=== PATIENT | female | born 1990 | race American Indian/Alaskan Native ===

== ENCOUNTER 2016-08-17 05:46 | Emergency (ER) | payer OTHER ==
[2016-08-17 06:39] LABS: Basophils % (Auto) 0.5 % (0.0-1.8); Eosinophils % (Auto) 0.8 % (0.0-4.3); Hematocrit 40.6 % (30.3-42.9); Hemoglobin 13.6 gm/dl (10.1-14.3); Mean Corpuscular HGB Conc 34 % (30-34); Mean Corpuscular Hemoglobin 32 pg (28-32); Mean Corpuscular Volume 95 fl (79-97); Platelet Count 169 K/mm3 (140-440); Red Blood Count 4.29 M/mm3 (3.65-5.03); Red Cell Distribution Width 13.3 % (13.2-15.2); White Blood Count 6.7 K/mm3 (4.5-11.0)
[2016-08-17 07:02] LABS: Alanine Aminotransferase 9 units/L (7-56); Albumin 3.8 g/dL (3.9-5); Albumin/Globulin Ratio 1.1 %; Alkaline Phosphatase 60 units/L (35-129); Anion Gap 16 mmol/L; Blood Urea Nitrogen 14 mg/dL (7-17); Calcium 8.4 mg/dL (8.4-10.2); Carbon Dioxide 23 mmol/L (22-30); Chloride 105.1 mmol/L (98-107); Glucose 92 mg/dL (65-100); Lipase 81 units/L (13-60); Potassium 3.7 mmol/L (3.6-5.0); Sodium 140 mmol/L (137-145); Total Protein 7.2 g/dL (6.3-8.2)
[2016-08-17 07:05] LABS: Bilirubin,Urine NEG (Negative); Blood,Urine NEG (Negative); Ketones,Urine NEG (Negative); Leukocyte Esterase,Urine SM (Negative); Mucus,Urine 1+ /HPF; Nitrite,Urine NEG (Negative); Protein,Urine <15 mg/dL mg/dL (Negative)
[2016-08-17 10:03] VITALS: BP 130/78
--- NOTE | 2016-08-17 10:23 | Emergency Department Report ---
ED General Adult HPI - General Chief complaint: Abdominal Pain Stated complaint: ABD PAIN Time Seen by Provider: 08/17/16 10:06 Source: patient, RN notes reviewed Mode of arrival: Ambulatory Limitations: No Limitations - History of Present Illness Initial comments: This is a 26-year-old female. She is previously unknown to me. She does not have a primary care doctor. She denies chronic medical conditions. She does not take oral contraceptives for control. she reports surgical history for right-sided salpingectomy a few years ago, secondary to ectopic . The patient presents to the ER complaining of not feeling well, an episode of near-syncope yesterday. The patient reports that she was out in the extreme heat, did not eat enough or drink enough. She denies sudden or thunderclap headache, neck pain, neck stiffness, recent chiropractic manipulation. There is no chest pain, there is no shortness of breath, there is no leg pain, there is no leg swelling, no recent trips greater than 4 hours, no recent hospital admissions. The patient states that she has no change in her exercise tolerance, and she denies irritative and obstructive urinary symptoms. She reports a few episodes of diarrhea, which she describes as nonbloody, loose, watery, brown. The patient does not think that she had a complete loss of consciousness, only that she felt "dizzy and weak", and needed to sit down. The patient also complains of intermittent left lower quadrant pain which is described as crampy in nature. She associates with her menstruation. -: Gradual Location: abdomen Quality: aching Consistency: intermittent Improves with: none Worsens with: none Associated Symptoms: malaise, nausea/vomiting, syncope (near), weakness. denies : confusion, chest pain, cough, diaphoresis, fever/chills, headaches, loss of appetite - Related Data Previous Rx's Medication Instructions Recorded Last Taken Type Ibuprofen [Motrin] 600 mg PO Q8H PRN #30 tablet 08/17/16 Unknown Rx Ondansetron [Zofran Odt] 4 mg PO QID PRN #20 tab.rapdis 08/17/16 Unknown Rx Allergies Allergy/AdvReac Type Severity Reaction Status Date / Time No Known Allergies Allergy Unverified 08/17/16 05:55 ED Review of Systems ROS: Stated complaint: ABD PAIN Other details as noted in HPI Constitutional: denies: fever Eyes: denies: eye discharge ENT: denies: epistaxis Respiratory: denies: cough Cardiovascular: denies: chest pain Gastrointestinal: abdominal pain Genitourinary: denies: urgency, dysuria Musculoskeletal: denies: back pain Skin: denies: lesions Neurological: weakness Psychiatric: denies: depression ED Past Medical Hx - Past Medical History Previous Medical History?: Yes Additional medical history: Ectopic in 2010 and lost her right Fallopian tube - Surgical History Past Surgical History?: Yes Additional Surgical History: Ectopic right Fallopian tube removal - Social History Smoking Status: Unknown if ever smoked - Medications Home Medications: Home Medications Medication Instructions Recorded Confirmed Last Taken Type Ibuprofen [Motrin] 600 mg PO Q8H PRN #30 tablet 08/17/16 Unknown Rx Ondansetron [Zofran Odt] 4 mg PO QID PRN #20 tab.rapdis 08/17/16 Unknown Rx ED Physical Exam - General Limitations: No Limitations General appearance: alert, in no apparent distress - Head Head exam: Present: atraumatic, normocephalic - Eye Eye exam: Present: normal appearance, PERRL, EOMI, other (visual acuity intact to finger counting, color perception, reading at a close distance) - ENT ENT exam: Present: normal exam, normal orophraynx, mucous membranes moist, normal external ear exam, other (there is no mastoid tenderness. The bilateral ear helices are nontender. There is cerumen noted in the bilateral external auditory canals) - Neck Neck exam: Present: normal inspection, full ROM. Absent: tenderness, meningismus - Respiratory Respiratory exam: Present: normal lung sounds bilaterally. Absent: respiratory distress, wheezes, rales, rhonchi, stridor, chest wall tenderness, accessory muscle use, decreased breath sounds, prolonged expiratory - Cardiovascular Cardiovascular Exam: Present: regular rate, normal rhythm, normal heart sounds. Absent: bradycardia, tachycardia, irregular rhythm, systolic murmur, diastolic murmur, rubs, gallop - GI/Abdominal GI/Abdominal exam: Present: soft, normal bowel sounds. Absent: distended, tenderness, guarding, rebound, rigid, pulsatile mass - External exam: Present: normal external exam Speculum exam: Present: normal speculum exam, vaginal bleeding Bi-manual exam: Present: normal bi-manual exam, other (escorted by BHAKTI Rice). Absent: cervical motion tendernes, adnexal tenderness, adnexal mass - Extremities Exam Extremities exam: Present: normal inspection, full ROM, normal capillary refill. Absent: tenderness, pedal edema, joint swelling, calf tenderness - Back Exam Back exam: Present: normal inspection, full ROM. Absent: tenderness, CVA tenderness (R), CVA tenderness (L), muscle spasm, paraspinal tenderness, vertebral tenderness - Neurological Exam Neurological exam: Present: alert, oriented X3, normal gait (normal gait, normal tandem gait, negative pronator drift, negative Romberg examination, normal sllr-er-[id number].), other (Extraocular movements intact. Tongue midline. No facial droop. Facial sensation intact to light touch in the V1, V2, V3 distribution bilaterally. 5 and 5 strength in 4 extremities.. Sensation is intact to light touch in 4 extremities.). Absent: motor sensory deficit - Psychiatric Psychiatric exam: Present: normal affect, normal mood - Skin Skin exam: Present: warm, dry, intact, normal color. Absent: rash ED Course Vital Signs 08/17/16 08/17/16 05:57 10:02 Temperature 98.7 F Pulse Rate 87 77 Respiratory 14 16 Rate Blood Pressure 115/72 Blood Pressure 130/78 [Left] O2 Sat by Pulse 98 99 Oximetry - Reevaluation(s) Reevaluation #1: 08/17/16 10:23 differential diagnosis: Orthostasis, vagal event, heat exhaustion , electrolyte derangement, urinary tract infection, , arrhythmia, structural cardiac disease Assessment and plan: 26-year-old female with intermittent left lower quadrant pain, an episode of near-syncope. She is afebrile with reassuring vital signs, has a GCS of 15, NIH score of 0, walks with a steady gait, clinically sober. He has no pulmonary embolus or DVT risk factors, she is low risk by well's criteria, and is perc negative. The abdomen is soft and benign, with no rebound, guarding or peritoneal signs. She is tolerating liquid feeds at this time. Her main complaint is near syncope , and she does not relate this to the abdominal pain, they appear to be separate complaints. Laboratory studies are unremarkable, she sounds not be , a urinalysis is contaminated with epithelial cells, she endorses no irritative or obstructive urinary symptoms, however her urine culture will be sent. We will obtain an EKG, performed gynecologic examination. The patient is not actively vomiting at this time. Elevated lipase nonspecific, there is no epigastric tenderness, liver function tests are otherwise within normal limits, given her benign abdominal examination , benign neurologic examination, I do believe the patient requires advanced imaging at this time. There is no sudden or thunderclap headache, and there is no recent history of neck trauma or chiropractic manipulation. Therefore I dont feel like this patient requires advanced imaging of the head of the neck. Reevaluation #2: 08/17/16 11:07 gynecologic examination is benign. Patient is tolerating liquid feeds. There is no pulsatile abdominal mass. 2+ pulses noted in 4 extremities. Patient feels improved. Patient will be discharged at this time. ED Medical Decision Making - Lab Data Result diagrams: 08/17/16 06:18 08/17/16 06:18 Vital Signs 08/17/16 08/17/16 05:57 10:02 Temperature 98.7 F Pulse Rate 87 77 Respiratory 14 16 Rate Blood Pressure 115/72 Blood Pressure 130/78 [Left] O2 Sat by Pulse 98 99 Oximetry Lab Results 08/17/16 08/17/16 08/17/16 Range/Units 06:16 06:18 06:18 WBC 6.7 (4.5-11.0) K/mm3 RBC 4.29 (3.65-5.03) M/mm3 Hgb 13.6 (10.1-14.3) gm/dl Hct 40.6 (30.3-42.9) % MCV 95 (79-97) fl MCH 32 (28-32) pg MCHC 34 (30-34) % RDW 13.3 (13.2-15.2) % Plt Count 169 (140-440) K/mm3 Lymph % (Auto) 23.6 (13.4-35.0) % [place] % (Auto) 8.2 H (0.0-7.3) % Eos % (Auto) 0.8 (0.0-4.3) % Baso % (Auto) 0.5 (0.0-1.8) % Lymph # 1.6 (1.2-5.4) K/mm3 [place] # 0.5 (0.0-0.8) K/mm3 Eos # 0.1 (0.0-0.4) K/mm3 Baso # 0.0 (0.0-0.1) K/mm3 Seg Neutrophils % 66.9 (40.0-70.0) % Seg Neutrophils # 4.5 (1.8-7.7) K/mm3 Sodium 140 (137-145) mmol/L Potassium 3.7 (3.6-5.0) mmol/L Chloride 105.1 (98-107) mmol/L Carbon Dioxide 23 (22-30) mmol/L Anion Gap 16 mmol/L BUN 14 (7-17) mg/dL Creatinine 0.7 (0.7-1.2) mg/dL Estimated GFR > 60 ml/min BUN/Creatinine Ratio 20.00 % Glucose 92 (65-100) mg/dL Calcium 8.4 (8.4-10.2) mg/dL Total Bilirubin 0.40 (0.1-1.2) mg/dL AST 13 (5-40) units/L ALT 9 (7-56) units/L Alkaline Phosphatase 60 (35-129) units/L Total Protein 7.2 (6.3-8.2) g/dL Albumin 3.8 L (3.9-5) g/dL Albumin/Globulin Ratio 1.1 % Lipase 81 H (13-60) units/L Urine Color Yellow (Yellow) Urine Turbidity Clear (Clear) Urine pH 5.0 (5.0-7.0) Ur Specific [place] 1.024 (1.003-1.030) Urine Protein <15 mg/dl (Negative) mg/dL Urine Glucose (UA) Neg (Negative) mg/dL Urine Ketones Neg (Negative) mg/dL Urine Blood Neg (Negative) Urine Nitrite Neg (Negative) Urine Bilirubin Neg (Negative) Urine Urobilinogen 2.0 (<2.0) mg/dL Ur Leukocyte Esterase Sm (Negative) Urine WBC (Auto) 21.0 H (0.0-6.0) /HPF Urine RBC (Auto) 1.0 (0.0-6.0) /HPF U Epithel Cells (Auto) 14.0 H (0-13.0) /HPF Urine Mucus 1+ /HPF Urine HCG, Qual Negative (Negative) - EKG Data -: EKG Interpreted by Ca - EKG Data 08/17/16 10:43 Normal sinus, 62 bpm, normal axis, first-degree AV block, normal intervals otherwise, no epsilon wave noted, no Brugada pattern noted, are not morphologically consistent with STEMI. Critical care attestation.: If time is entered above; I have spent that time in minutes in the direct care of this critically ill patient, excluding procedure time. ED Disposition Clinical Impression: Near syncope, Abdominal pain, left lower quadrant Disposition: DISCHARGED TO HOME OR SELFCARE Is pt being admited?: No Does the pt Need Aspirin: No Condition: Stable Additional Instructions: Laboratory studies were essentially unremarkable. There was a slight nonspecific elevation in lipase, this is most likely incidental and not clinically significant. Cultures were sent today, results will be available in the next 3-5 days. Have a primary care doctor contact the medical records department to obtain culture results. Drink 6-8 cups of water per day, make certain to eat at least 3 meals per day. Follow up with any listed physicians or primary care doctors within the next 7-10 days. Return to the ER right away with new pain, worsened pain, migration of pain, fevers, chills, chest pain, shortness of breath, change in mental status, confusion, intractable nausea or vomiting, inability to tolerate liquid feeds, or any new different or worsening symptoms that were not present on the initial ER evaluation. Referrals: PRIMARY CAREMD [Primary Care Provider] - 3-5 Days CHRISTIANE WHITE MD [Staff Physician] - 3-5 Days [facility] [Provider Group] - 3-5 Days [facility] [Provider Group] - 3-5 Days [facility] [Provider Group] - 3-5 Days Forms: Work/School Release Form(ED)
[2016-08-17] MEDS ORDERED: MOTRIN PO ONE (10:26)
== END 2016-08-17 11:18 | disposition home or self-care (01) ==
LOC: ED 05:46
DX: R55 Syncope and collapse (principal); R10.32 Left lower quadrant pain
CPT/HCPCS: 36415; 80053; 81001; 81025; 83690; 85025; 87076; 87086; 87186; 87210; 87591; 93005; 93010; 99284